=== PATIENT | male | born 1965 | race African-American/Black ===

== ENCOUNTER 2017-07-31 11:40 | Emergency (ER) | payer MEDICARE, MEDICAID ==
[~2017-07-31] VITALS: Ht 167.6 cm; Wt 68.0 kg
[2017-07-31 12:00] VITALS: BP 120/77
== END 2017-07-31 17:07 | disposition left against medical advice (07) ==
LOC: ER 13:40
DX: R21 Rash and other nonspecific skin eruption (principal); Z53.21 Procedure and treatment not carried out due to patient leaving prior to being seen by health care provider